=== PATIENT | female | born 1975 | race Caucasian/White ===

== ENCOUNTER 2024-08-01 10:36 | Emergency (ER) | payer OTHER, MEDICAID, SELFPAY ==
--- NOTE | ~2024-08-01 | XR_ITS ---
EXAMINATION: XR CHEST 2 VIEWS HISTORY: CP COMPARISON: There are no prior studies available for comparison. FINDINGS: PA and lateral views of the chest are submitted. There are surgical clips in the anterior mediastinum. The lungs are expanded and clear. There is no pleural effusion, pneumothorax, or pulmonary vascular congestion. The heart is normal in size. The bones are intact. There are surgical clips in the right upper quadrant. XR/XR chest 2V IMPRESSION: Clear lungs. Electronically signed by: Jeff Mendoza MD 08/01/2024 11:45 AM EDT
--- NOTE | ~2024-08-01 | XR_ITS ---
EXAMINATION: XR CERVICAL SPINE CLINICAL INFORMATION: pain, left sided radicular pain COMPARISON: None available. TECHNIQUE: AP, lateral and atlantoodontoid views. FINDINGS: Craniocervical junction is intact. Anterior marginal osteophyte formation C5-6 and C6-7 levels. Reverse curvature apex at C5-6. No acute cortical disruption. No gross malalignment. Multiple vascular clips in the prevertebral compartment/larynx anterior mediastinum region. XR/XR cervical spine 3V IMPRESSION: Cervical spondylosis C5-6 and C6-7 resulting in reverse curvature. Probable prior thyroid gland surgery. Electronically signed by: Joey Metzger MD 08/01/2024 02:15 PM EDT
--- NOTE | 2024-08-01 10:39 | ECG_ITS ---
Test Reason : cp Blood Pressure : */* mmHG Vent. Rate : 70 BPM Atrial Rate : 70 BPM P-R Int : 158 ms QRS Dur : 78 ms QT Int : 380 ms P-R-T Axes : 65 3 56 degrees QTcB Int : 410 ms Normal sinus rhythm Normal ECG No previous ECGs available Referred By: Generic ED Physician Electronically Signed By: DARLINE HERNANDEZ
--- NOTE | 2024-08-01 11:08 | ED_ITS ---
HPI - Chest Pain General Chief Complaint: Chest Pain Stated Complaint: Chest Pain L Arm Pain X 1 Day Time Seen by Provider: 08/01/24 14:20 History of Present Illness ED Provider: Laura DUTTON narrative: The patient is a 49-year-old woman who reports a long history of problems with pains in her neck and shoulders. She has had physical therapy for problems with the her neck and shoulders in the past but not for many years. The patient says that despite these problems she engages in some high intensity activity such as roller [place] and mountain biking. The patient says that over the last 2 years she has had worsening pain in the left side of her neck and in the region of her left shoulder and scapula and that the pain radiates down the left arm into the hand. She went to an urgent care center yesterday and was prescribed cyclobenzaprine as a muscle relaxant. She was apparently prescribed 5 mg pills. She tried using the cyclobenzaprine last night and had no improvement. She says she could not sleep because of pain. No fever, sweats, chills. 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 She is on no treatment. The patient is not have a primary care doctor any other doctors. She lives in [place]. She has a insurance but says that despite having insurance she has had trouble finding a new primary care doctor. Related Data Previous Rx's ?Medication ?Instructions ?Recorded diazepam 5 mg tablet 5 mg PO BEDTIME PRN muscle s pasm 08/01/24 #14 tabs ibuprofen 400 mg tablet 400 mg PO Q6H PRN pain #14 t abs 08/01/24 Allergies Allergy/AdvReac Type Severity Reaction Status Date / Time codeine Allergy Hives Verified 08/01/24 11:11 erythromycin base Allergy Hives Verified 08/01/24 11:11 morphine Allergy Hives Verified 08/01/24 11:11 Review of Systems 2 Review of Systems: Yes all other systems are reviewed and are negative [facility] Social History Social History Smoked in Last 30 Days: Yes Use of substances other than those prescribed or required for medical reasons: No Advance Directives: No Advance Directives Information Provided: Yes Patient : No Physical Exam 2 Vital Signs: Vital Signs: Last Vital Signs Temp 98.1 F 06/23/25 15:20 Pulse 60 08/01/24 15:20 Resp 18 08/01/24 15:20 BP 133/85 08/01/24 15:20 Pulse Ox 100 08/01/24 15:20 O2 Del Method Room Air 08/01/24 15:20 BMI result Body Mass Index 26.1 Const: Other: The patient is awake, alert, pleasant, cooperative. She does not appear overtly toxic. HEENT: Other: Face is symmetrical, mucous membranes moist. Eyes: Other: Pupils are round equal, conjunctivae are clear, extraocular movements intact Neck: Other: The patient has generalized tenderness of the paraspinous muscles of the neck, particularly in the left side. No soft tissue swelling or deformity. She seems to have some limitation of movement of the neck, particularly looking to the right. Chest: Other: The patient has a lot of generalized tenderness to the musculature around the left scapula and at the top of the left shoulder. There was no deformity. Resp: Effort & Inspection: normal respiratory effort Auscultation: clear to auscultation bilaterally Cardio: Rate: regular rate Rhythm: regular rhythm Heart sounds: S1 normal heart sound present and S2 normal heart sound present Skin: Other: The skin of the left shoulder is unremarkable. She has a horizontally oriented scar at the base of her neck in the supraclavicular fossa. She also has a vertically oriented scar over the sternum. Neuro: Other: The patient is awake, alert, pleasant, cooperative. Cranial nerves are grossly intact. Mental status is normal. She seems to have intact strength and sensation in the hands. She has 2+ reflexes at the biceps and triceps. Normal function of the legs. Extrem: Other: No peripheral edema Course Course Course Narrative: This is an RME: Additional HPI, ROS, PE not included below will be deferred to primary provider. RME assessment and note performed by: Jeanette Pennington PA-C This is a 49-year-old female who presents emergency department for evaluation of neck, shoulder and chest pain x 1 week. Pain worsens with movement, palpation. Unable to sleep. Tried changing out pillow without relief. Went to urgent care where she was told that she had DDD or fibromyalgia. She states that she was given a muscle relaxant which did not help her. Also using ibuprofen and naproxen without relief. Had an exploratory parathyroid appendectomy [facility]. Patient has tenderness palpation along the left cervical paraspinous muscles extending into the left arm. Plan: Labs, Xray, EKG, further ER eval needed. > Pt re-evaluated, vitals remain stable. Will obtain c spine xrays Medical Decision Making Medical Decision Making [facility] Narrative: The patient had plain films of the cervical spine that shows some straightening of the normal curvature of the cervical spine without acute fracture or other obvious abnormality. She had a negative left shoulder x-ray. Clinically her pain seems to be reproducible with palpation of the muscles surrounding the left shoulder, left scapula, and the left side of the neck. She seems neurologically intact. The reflexes in the arms or normal and symmetrical. I explained to the patient I thought that her pain was primarily muscular in nature. There was no sign of acute coronary syndrome. She will be given a prescription for diazepam that she can use at bedtime to see if it helps her sleep. I also advised her that she can double up on the cyclobenzaprine that she has been prescribed already. She has been taking 5 mg of cyclobenzaprine without any amelioration of her symptoms. Patient has [employer] insurance but has been having trouble finding a doctor who accepts her insurance. She lives in [place]. She will be discharged with instructions to continue working with her insurance company to try to find a primary care doctor who will accept her insurance. Additionally I think it would be reasonable for her to try to contact [facility] for evaluation of her left shoulder and neck pain. As a separate issue the patient was informed that her calcium was 12.1. Patient did not seem to feel that this was a very high level given her history. She will be advised to increase fluid intake. Lab Data 08/01/24 11:34 08/01/24 11:34 Labs: Lab Results 08/01/24 Range/Units 11:34 WBC 5.9 (4.8-10.8) X10*3/uL RBC 4.12 L (4.20-5.50) X10*6/uL Hgb 14.0 (12.0-16.0) g/dl Hct 41.8 (37.0-47.0) % MCV 101.5 H (80.0-98.0) fL MCH 34.0 H (27.0-33.0) pg MCHC 33.5 (31.0-35.0) g/dl RDW 15.1 (11.0-16.0) % Plt Count 163 (160-400) X10*3/uL MPV 10.5 (9.4-12.3) fL Immature Gran % (Auto) 0.3 (0.0-0.4) % Neut % (Auto) 51.4 (45-73) % Lymph % (Auto) 30.3 (20-40) % Evangeline % (Auto) 10.7 (2-11) % Eos % (Auto) 6.3 H (0-4) % Baso % (Auto) 1.0 (0-2) % Lymph # (Auto) 1.8 (1.2-4.9) X10*3/uL Evangeline # (Auto) 0.6 (0.1-1.2) X10*3/uL Eos # (Auto) 0.4 (0.0-0.4) X10*3/uL Baso # (Auto) 0.1 (0.0-0.2) X10*3/uL Abs Immat Gran (auto) 0.02 (0.00-0.03) X10*3/uL Absolute Neuts (auto) 3.0 (2.0-8.3) x10*3/uL Absolute Nucleated RBC 0.000 (0.0-0.012) X10*3/uL Nucleated RBC % (auto) 0.0 (0.0-0.2) /100WBC Sodium 139 (135-145) mmol/L Potassium 4.8 (3.3-5.1) mmol/L Chloride 108 (96-108) mmol/L Carbon Dioxide 27 (22-29) mmol/L Anion Gap 9 L (12-20) BUN 13 (9-16) mg/dL Creatinine 0.59 (0.5-1.4) mg/dL Estim Creat Clear Calc 114.1 Estimated GFR > 60 Random Glucose 65 (60-115) mg/dL Calcium 12.1 H (8.4-10.2) mg/dL Magnesium 2.3 (1.6-2.6) mg/dL Total Bilirubin 0.4 (0.0-1.0) mg/dL Direct Bilirubin 0.2 (0.0-0.5) mg/dL AST 27 (5-31) U/L ALT 22 (0-31) U/L Alkaline Phosphatase 62 (39-117) U/L Troponin I High Sens < 2.7 (<3.5-17.0) ng/L Total Protein 7.1 (6.5-8.0) g/dL Albumin 4.4 (3.5-5.0) g/dL Discharge Plan Discharge Clinical Impression: Left shoulder pain, Neck pain, Hypercalcemia Patient Disposition: Home, Self-Care Instructions: Hypercalcemia (ED) Additional Instructions: For pain management you may do the following: Take 2 extra-strength acetaminophen (Tylenol) up to 3 times a day. Use ibuprofen every 6 hours. You may double up on the dosing of the cyclobenzaprine you were previously prescribed and take 10 mg per dose. You should not drive if taking cyclobenzaprine. I have also sent a prescription for diazepam that you may use at bedtime to help for muscle relaxation to allow for sleep. Please continue your efforts to get a primary care doctor. I think it would be good for you to be seen at a more specialized practice for your neck and shoulder issues. Please try [facility]. Rest and take it easy for the next couple of days. Avoid any activities that exacerbate your pain. Your calcium level today was 12.1. Please make sure that you stay well hydrated. Return to the emergency department if significantly worse. Prescriptions: New diazepam 5 mg tablet 5 mg PO BEDTIME PRN (Reason: muscle spasm) Qty: 14 0RF ibuprofen 400 mg tablet 400 mg PO Q6H PRN (Reason: pain) Qty: 14 0RF Referrals: [facility] [Provider Group, Sports Medicine] Stand Alone Forms: Work/School Release Interventions: ED Discharge Assessment Last Done: 08/01/24 15:20 Discharge Date/Time: 08/01/24 15:20 Print Language: Hebrew
[2024-08-01 11:09] VITALS: BP 124/42; PULSE 69; RESP 18; TEMP 36.8; O2SAT 100; BMI 26.1
[2024-08-01 11:42] LABS: MANUAL DIFF FLAG NO
[2024-08-01 11:43] LABS: Basophils Absolute Auto 0.1 X10*3/uL (0.0-0.2); Eosinophils Absolute Auto 0.4 X10*3/uL (0.0-0.4); Eosinophils Percent Auto 6.3 % (0-4); Hematocrit 41.8 % (37.0-47.0); Imm Gran Abs Auto 0.02 X10*3/uL (0.00-0.03); Imm Gran Pct Auto 0.3 % (0.0-0.4); Lymphocytes Absolute Auto 1.8 X10*3/uL (1.2-4.9); Lymphocytes Percent Auto 30.3 % (20-40); Mean Corpuscular HGB Conc 33.5 g/dl (31.0-35.0); Mean Corpuscular Volume 101.5 fL (80.0-98.0); Mean Platelet Volume 10.5 fL (9.4-12.3); Monocytes Absolute Auto 0.6 X10*3/uL (0.1-1.2); Monocytes Percent Auto 10.7 % (2-11); Neutrophils Percent Auto 51.4 % (45-73); Platelet Count 163 X10*3/uL (160-400); Red Blood Count 4.12 X10*6/uL (4.20-5.50); Red Cell Distribution Width 15.1 % (11.0-16.0); White Blood Count 5.9 X10*3/uL (4.8-10.8)
[2024-08-01 12:03] LABS: Alanine Aminotransferase 22 U/L (0-31); Albumin Level 4.4 g/dL (3.5-5.0); Alkaline Phosphatase 62 U/L (39-117); Anion Gap 9 (12-20); Aspartate Amino Transferase 27 U/L (5-31); Bilirubin Direct 0.2 mg/dL (0.0-0.5); Bilirubin Total 0.4 mg/dL (0.0-1.0); Blood Urea Nitrogen 13 mg/dL (9-16); Calcium 12.1 mg/dL (8.4-10.2); Carbon Dioxide 27 mmol/L (22-29); Chloride 108 mmol/L (96-108); Creatinine Clr Calc Pharmacy 114.1; Estimated Glomerular Filt Rate > 60; Glucose Random 65 mg/dL (60-115); Magnesium 2.3 mg/dL (1.6-2.6); Potassium 4.8 mmol/L (3.3-5.1); Sodium 139 mmol/L (135-145); Total Protein 7.1 g/dL (6.5-8.0)
[2024-08-01 12:12] LABS: Troponin-I High Sensitivity < 2.7 ng/L (<3.5-17.0)
[2024-08-01 13:37] VITALS: BP 126/61; PULSE 60; RESP 18; TEMP 36.8; O2SAT 100
[2024-08-01 15:19] VITALS: BP 133/85; PULSE 60; RESP 18; TEMP 36.7; O2SAT 100
[2024-08-01 15:20] VITALS: BP 133/85; PULSE 60; RESP 18; TEMP 36.7; O2SAT 100
== END 2024-08-01 15:20 | disposition home or self-care (01) ==
PROVIDERS: Physician Assistant Medical; Emergency Provider Emergency Medicine
DX: M25.512 Pain in left shoulder (principal); R07.89 Other chest pain; E83.52 Hypercalcemia; M54.2 Cervicalgia; M25.511 Pain in right shoulder; M79.602 Pain in left arm
CPT/HCPCS: 36415; 71046; 72040; 80048; 80076; 83735; 84484; 85025; 93005; 99284; 99285

== ENCOUNTER → 2024-08-01 10:39 | Outpatient (BNV) | payer OTHER, MEDICAID, SELFPAY | PROVIDERS: Emergency Provider Emergency Medicine; Visit Provider Internal Medicine | DX: R07.9 Chest pain, unspecified (principal) | CPT/HCPCS: 93010 ==

== ENCOUNTER → 2024-08-01 11:14 | Outpatient (BNV) | payer MEDICARE, MEDICAID, SELFPAY | PROVIDERS: Visit Provider Radiology Diagnostic Radiology | DX: M50.322 Other cervical disc degeneration at C5-C6 level (principal); R07.9 Chest pain, unspecified | CPT/HCPCS: 71046; 72040 ==